=== PATIENT | female | born 1990 | race Caucasian/White ===

== ENCOUNTER 2019-01-24 22:35 | Emergency (ER) | payer MEDICAID ==
[~2019-01-24] VITALS: Ht 157.5 cm; Wt 60.0 kg
[~2019-01-24 22:35] MED LIST: ALBU8HFA IH; AZIT500T2 PO; CEPH-571 PO; IBUP-1573 PO; ROBCFL PO
[2019-01-24 22:41] VITALS: BP 177/135
--- NOTE | 2019-01-24 22:53 | NUR ---
INCIDENT NUMBER [id number]. REPORT CALLED TO [facility] [phone]
[2019-01-25] MEDS ORDERED: LORazepam 0.5 MG tablet PO PRN
[2019-01-25] MEDS ORDERED: ibuprofen tablet 400 MG TABLET PO ONE
== END 2019-01-25 00:50 | disposition home or self-care (01) ==
LOC: ER 22:35
DX: S00.93XA Contusion of unspecified part of head, initial encounter (principal); F10.10 Alcohol abuse, uncomplicated; F17.210 Nicotine dependence, cigarettes, uncomplicated; W22.8XXA Striking against or struck by other objects, initial encounter; Y93.89 Activity, other specified; Y92.89 Other specified places as the place of occurrence of the external cause; Y99.8 Other external cause status; Z79.899 Other long term (current) drug therapy
CPT/HCPCS: 70450; 72125; 99284

== ENCOUNTER 2019-04-17 22:51 | Emergency (ER) | payer MEDICAID ==
[~2019-04-17] VITALS: Ht 157.5 cm; Wt 59.0 kg
[2019-04-18] MEDS ORDERED: NEOM10DR45 OT (01:01)
[2019-04-18 01:03] VITALS: BP 174/121
[2019-04-18] MEDS ORDERED: ketorolac tromethamine 15mg/ml inj. IM ONE (01:05)
--- NOTE | 2019-04-18 01:19 | NUR ---
CALLED [facility] FOR RIDE TO [address] [place]ARDS AT 01:19
[2019-04-18] MEDS ORDERED: ACET-2119 PO (18:05)
[2019-04-18] MEDS ORDERED: IBUP-1985 PO (18:05)
[2019-04-18] MEDS ORDERED: AMOX-580 PO (18:07)
== END 2019-04-18 01:23 | disposition home or self-care (01) ==
LOC: ER 22:52
DX: H60.91 Unspecified otitis externa, right ear (principal); Z79.2 Long term (current) use of antibiotics; Z79.899 Other long term (current) drug therapy; Z79.1 Long term (current) use of non-steroidal anti-inflammatories (NSAID)
CPT/HCPCS: 96372; 99283; J1885

== ENCOUNTER 2019-04-18 16:10 | Emergency (ER) | payer MEDICAID ==
[~2019-04-18] VITALS: Ht 156.2 cm; Wt 59.0 kg
[~2019-04-18 16:10] MED LIST changes: +NEOM10DR45 OT
[2019-04-18 16:30] VITALS: BP 164/115
[2019-04-18] MEDS ORDERED: acetaminophen 325mg tablet PO ONE (17:15)
[2019-04-18] MEDS ORDERED: ACET-2119 PO (18:05)
[2019-04-18] MEDS ORDERED: IBUP-1985 PO (18:05)
[2019-04-18] MEDS ORDERED: AMOX-580 PO (18:07)
== END 2019-04-18 18:17 | disposition home or self-care (01) ==
LOC: ER 16:11
DX: H73.013 Bullous myringitis, bilateral (principal); F17.200 Nicotine dependence, unspecified, uncomplicated; Z79.899 Other long term (current) drug therapy
CPT/HCPCS: 99283

== ENCOUNTER 2019-09-23 10:32 | Emergency (ER) | payer MEDICAID ==
[~2019-09-23] VITALS: Ht 157.5 cm; Wt 69.0 kg
[~2019-09-23 10:32] MED LIST changes: +IBUP-1985 PO; -NEOM10DR45 OT
--- NOTE | 2019-09-23 11:07 | NUR ---
PATIENT STATES COLD SYMPTOMS WITH THICK, PURULENT NASAL DRAINAGE X 2 DAYS. THINKS SHE HAS A SINUS INFECTION.
[2019-09-23] MEDS ORDERED: IBUP-1984 PO (11:31)
[2019-09-23] MEDS ORDERED: AMOX-580 PO (11:31)
[2019-09-23 11:41] VITALS: BP 165/128
--- NOTE | 2019-09-23 12:17 | NUR ---
PATIENT LEAVING UNIT AFTER ASSESSED PER PROVIDER. STATES SHE DOES NOT WANT TO STAY FOR TREATMENT AND WILL "GO TO THE OTHER HOSPITAL". DEPARTED [facility].
== END 2019-09-23 12:25 | disposition left against medical advice (07) ==
LOC: ER 10:33
DX: J32.9 Chronic sinusitis, unspecified (principal); F10.10 Alcohol abuse, uncomplicated; Z79.899 Other long term (current) drug therapy; Y90.9 Presence of alcohol in blood, level not specified
CPT/HCPCS: 99283